=== PATIENT | male | born 1960 | race Caucasian/White ===

== ENCOUNTER 2021-06-18 10:03 | Emergency (ER) | payer OTHER ==
[~2021-06-18] VITALS: Ht 172.7 cm; Wt 97.5 kg
[2021-06-18 10:15] VITALS: BP 119/79
[2021-06-18] MEDS ORDERED: HYDROCHLOROTHIA50 MG PO (10:20)
[2021-06-18] MEDS ORDERED: ALLOPURINOL 10100 M3 PO (10:20)
[2021-06-18] MEDS ORDERED: LIPITOR40 MG PO (10:20)
[2021-06-18] MEDS ORDERED: KLOR-CON M2020 MEQ PO (10:20)
[2021-06-18] MEDS ORDERED: ZPAK PO (11:00)
== END 2021-06-18 11:29 | disposition home or self-care (01) ==
LOC: M.ERS 10:03
DX: U07.1 COVID-19 (principal); R05 Cough; R09.89 Other specified symptoms and signs involving the circulatory and respiratory systems; Z79.899 Other long term (current) drug therapy